=== PATIENT | male | born 1955 | race Caucasian/White ===

== ENCOUNTER 2019-09-19 05:38 | Observation (INO) | payer MEDICARE, MEDICAID ==
[~2019-09-19 05:38] MED LIST: Buffered Lidocaine 1% SYRIN* 1 ML/SYRINGE INTRADERM ONE
[2019-09-19] MEDS ORDERED: Lactated Ringers 1000 ML Bag* 1,000 ML IV SCH (06:00)
[2019-09-19] MEDS ORDERED: EPINEPHRINE 1 MG/ML 1 ML VIAL ONE (06:32)
[2019-09-19] MEDS ORDERED: Bupivacaine 0.5%* 50 ML MDV VIAL ONE (06:33)
[2019-09-19] MEDS ORDERED: Lidocaine 1% w EPI 1:100,000* MDV 20 ML VIAL ONE (06:33)
[2019-09-19] MEDS ORDERED: ceFAZolin 2 GM in NS PREMIX(*) 2 GM/100 ML BAG IVPB ONE (06:46)
[2019-09-19] MEDS ORDERED: Propofol* 10 MG/ML 20 ML BTL ONE (07:00)
[2019-09-19] MEDS ORDERED: Midazolam* 1 MG/ML 2 ML VIAL (2 MG) ONE (07:01)
[2019-09-19] MEDS ORDERED: fentaNYL* 50 MCG/ML 2 ML VIAL (100 MCG VIAL) ONE (07:01)
[2019-09-19] MEDS ORDERED: ROPIVACAINE 5 MG/ML 30 ML BTL (0.5%) ONE (07:01)
[2019-09-19] MEDS ORDERED: Lidocaine 2% PF * 5 ML VIAL ONE (07:01)
[2019-09-19] MEDS ORDERED: Rocuronium* 10 MG/ML VIAL ONE (07:03)
[2019-09-19] MEDS ORDERED: Propofol* 500 MG/50 ML BTL ONE (08:04)
[2019-09-19] MEDS ORDERED: KETAMINE HCL* 50 MG/ML 10 ML VIAL ONE (08:04)
[2019-09-19] MEDS ORDERED: Morphine INJ* 2 MG/ML 1 ML SYRINGE (TWO MG - NEW SYRINGE VERSION) IV PRN (09:51)
[2019-09-19] MEDS ORDERED: diPHENhydraMINE IV* 50 MG/ML 1 ml VIAL (BENADRYL) IV PRN (09:51)
[2019-09-19] MEDS ORDERED: diPHENhydraMINE PO* 25 MG PO PRN (09:51)
[2019-09-19] MEDS ORDERED: Magnesium Hydroxide LIQ* 30 ML UDC PO PRN (09:51)
[2019-09-19] MEDS ORDERED: Ondansetron INJ* 2 MG/ML VIAL IV PRN (09:51)
[2019-09-19] MEDS ORDERED: traZODone TAB* 50 MG TAB PO PRN (09:51)
[2019-09-19] MEDS ORDERED: oxyCODONE/Acetamin 5/325 MG* TAB PO PRN (09:51)
[2019-09-19] MEDS ORDERED: Ondansetron ODT TAB* 4 MG PO PRN (09:51)
[2019-09-19] MEDS ORDERED: Atropine 1MG/ML INJ* 1 ML VIAL ONE (09:59)
[2019-09-19] MEDS ORDERED: Mupirocin 2% OINT* TUBE TOPICAL PRN (10:00)
[2019-09-19] MEDS ORDERED: Docusate CAP* 100 MG PO PRN (10:00)
[2019-09-19] MEDS ORDERED: ceFAZolin 1 GM ADVAN(*) 1 GM in NS 0.9% 50 ML* 50 ML IVPB SCH (10:00)
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
[2019-09-19] MEDS: Lactated Ringers 1000 ML Bag* 1,000 ML IV SCH ×2 (12:48→22:33)
[2019-09-19] MEDS: Acetaminophen TAB* 325 MG PO SCH ×2 (14:47→22:17)
[2019-09-19] MEDS: ceFAZolin 1 GM ADVAN(*) 1 GM in NS 0.9% 50 ML* 50 ML IVPB SCH ×2 (16:11→23:35)
[2019-09-19] MEDS: traMADol TAB* 50 MG PO PRN (16:11)
[2019-09-19] MEDS ORDERED: Metoprolol/HCTZ 50/25 (NF) 1 TAB PO SCH (21:00)
[2019-09-19] MEDS: Atorvastatin* 20 MG TAB PO SCH (21:53)
[2019-09-19] MEDS: Terazosin CAP* 5 MG PO SCH (21:53)
[2019-09-19] MEDS: Docusate CAP* 100 MG PO SCH (21:53)
[2019-09-19] MEDS: oxyCODONE/Acetamin 5/325 MG* TAB PO PRN (21:53)
[2019-09-19] MEDS: Calcium/Vitamin D TAB 250/125* TAB PO SCH (21:53)
[2019-09-19] MEDS: Magnesium Hydroxide LIQ* 30 ML UDC PO SCH (21:53)
[2019-09-19] MEDS: Aspirin TAB* 325 MG PO SCH (21:53)
[2019-09-19] MEDS: Metoprolol Tartrate TAB* 25 MG PO SCH (21:53)
[2019-09-19] MEDS: Clobetasol 0.05% OINT* 30 GM TUBE TOPICAL SCH (21:55)
[2019-09-20] MEDS: Acetaminophen TAB* 325 MG PO SCH ×3 (05:12→20:59)
[2019-09-20] MEDS: Cyclobenzaprine TAB* 10 MG PO PRN ×3 (05:12→21:45)
[2019-09-20 05:20] LABS: Hematocrit 37 % (42-52); Hemoglobin 12.3 g/dL (14.0-18.0); Mean Platelet Volume 8.5 fL (7.4-10.4); Platelet Count 306 10^3/uL (150-450)
[2019-09-20 05:36] LABS: BUN/Creatinine Ratio 26.5 (8-20); Calcium 8.6 mg/dL (8.6-10.3); EGFR Non-African American 118.2 (>60); Potassium 3.5 mmol/L (3.5-5.0)
[2019-09-20] MEDS: oxyCODONE/Acetamin 5/325 MG* TAB PO PRN ×3 (05:48→17:06)
--- NOTE | 2019-09-20 08:16 | PN ---
Progress Note - Progress Note Date of Service: 09/20/19 SOAP: Subjective: []Pt seen at bedside. He feels well his knee pain is well controlled. Denies CP , SOB, dizziness, nausea. Objective: []Gen: NAD, appears well RLE: in a chair with immobilizer in place. DF/PF intact, DP2+, sensation intact to light touch distally. Calves supple and nontender without erythema, edema or palpable cords Assessment: []Right total knee arthrofibrosis. Status post 12/26/18 right total knee arthroplasty at outside hospital, followed by subsequent outside hospital incision and debridement and closure of dehisced wound. POD 1 sp Right knee arthroscopic lysis of adhesions, manipulation under anesthesia of a total knee arthroplasty. Plan: []WBAT Aggressive ROM and strengthening Keep in knee immobilizer when not in PT in addition to a bump under his ankle while in bed CM will seek rehab placement Vital Signs Temp 98.2 F 09/20/19 07:38 Pulse 72 09/20/19 07:38 Resp 16 09/20/19 09:45 BP 108/64 09/20/19 07:38 Pulse Ox 96 09/20/19 07:38 Intake & Output 09/19/19 09/20/19 09/20/19 18:59 06:59 18:59 Intake Total 700 1780 Output Total 870 750 Balance -170 1030 Intake: IV Fluids 700 980 LR 700 980 Oral 0 800 Output: Urine 870 750 Other: Estimated Void Medium Date of Last Bowel 09/19/2019 Movement # Bowel Movements 1 Estimated Stool Amount Medium # Voids 1 Laboratory Last Values Hgb 12.3 g/dL (14.0-18.0) L 09/20/19 04:09 Hct 37 % (42-52) L 09/20/19 04:09 Plt Count 306 10^3/uL (150-450) 09/20/19 04:09 MPV 8.5 fL (7.4-10.4) 09/20/19 04:09 Sodium 138 mmol/L (135-145) 09/20/19 04:09 Potassium 3.5 mmol/L (3.5-5.0) 09/20/19 04:09 Chloride 101 mmol/L (101-111) 09/20/19 04:09 Carbon Dioxide 31 mmol/L (22-32) 09/20/19 04:09 Anion Gap 6 mmol/L (2-11) 09/20/19 04:09 BUN 18 mg/dL (6-24) 09/20/19 04:09 Creatinine 0.68 mg/dL (0.67-1.17) 09/20/19 04:09 Est GFR ( Amer) 143.0 (>60) 09/20/19 04:09 Est GFR (Non-Af Amer) 118.2 (>60) 09/20/19 04:09 BUN/Creatinine Ratio 26.5 (8-20) H 09/20/19 04:09 Glucose 91 mg/dL (70-100) 09/20/19 04:09 Calcium 8.6 mg/dL (8.6-10.3) 09/20/19 04:09
[2019-09-20] MEDS: ceFAZolin 1 GM ADVAN(*) 1 GM in NS 0.9% 50 ML* 50 ML IVPB SCH (08:52)
[2019-09-20] MEDS ORDERED: Furosemide TAB* 40 MG PO SCH (09:00)
[2019-09-20] MEDS: traMADol TAB* 50 MG PO PRN ×2 (09:45→20:33)
[2019-09-20] MEDS: Ferrous Sulfate TAB* 325 MG PO SCH (09:46)
[2019-09-20] MEDS: Vitamin THERAPEUTIC TAB PO SCH (09:46)
[2019-09-20] MEDS: Aspirin TAB* 325 MG PO SCH ×2 (09:46→20:34)
[2019-09-20] MEDS: Potassium Chlor TAB* 20 MEQ TAB.ER PO SCH (09:46)
[2019-09-20] MEDS: Docusate CAP* 100 MG PO SCH ×2 (09:46→20:34)
[2019-09-20] MEDS: [UNRECOGNIZED DRUG - OTHER] PO SCH (09:47)
[2019-09-20] MEDS: FLAX PO SCH (09:47)
[2019-09-20] MEDS: BORAGE PO SCH (09:47)
[2019-09-20] MEDS: Pantoprazole TAB * 40 MG TAB PO SCH (09:47)
[2019-09-20] MEDS: FISH OIL PO SCH (09:47)
[2019-09-20] MEDS: Calcium/Vitamin D TAB 250/125* TAB PO SCH ×2 (09:47→20:34)
[2019-09-20] MEDS: Vitamin B Complex TAB PO SCH (09:47)
[2019-09-20] MEDS: Magnesium Hydroxide LIQ* 30 ML UDC PO SCH ×2 (09:48→20:33)
[2019-09-20] MEDS: Clobetasol 0.05% OINT* 30 GM TUBE TOPICAL SCH ×2 (09:49→20:58)
[2019-09-20] MEDS ORDERED: Phenol 1.4% Spray* 177 ML BTL MT PRN (09:53)
[2019-09-20] MEDS: Metoprolol Tartrate TAB* 25 MG PO SCH (09:57)
[2019-09-20] MEDS: Terazosin CAP* 5 MG PO SCH (20:34)
[2019-09-20] MEDS: Atorvastatin* 20 MG TAB PO SCH (20:34)
[2019-09-20] MEDS: Metoprolol Tartrate TAB* 50 mg PO SCH (20:34)
[2019-09-20] MEDS ORDERED: oxyCODONE TAB* 5 MG TAB PO PRN (21:58)
[2019-09-21] MEDS: Acetaminophen TAB* 325 MG PO SCH (04:15)
[2019-09-21] MEDS: oxyCODONE/Acetamin 5/325 MG* TAB PO PRN ×2 (04:49→09:47)
[2019-09-21 05:01] LABS: Hematocrit 38 % (42-52); Hemoglobin 12.5 g/dL (14.0-18.0); Mean Platelet Volume 8.6 fL (7.4-10.4); Platelet Count 274 10^3/uL (150-450)
--- NOTE | 2019-09-21 09:02 | PN ---
Progress Note - Progress Note Date of Service: 09/21/19 SOAP: Subjective: []Pt seen at bedside. He feels well his knee pain is well controlled. Denies CP , SOB, dizziness, nausea. Objective: []Gen: NAD, appears well RLE: in a chair with immobilizer in place. DF/PF intact, DP2+, sensation intact to light touch distally. Calves supple and nontender without erythema, edema or palpable cords. Dressing was changed today. Incisions are all c/d/i Vital Signs Temp 98.0 F 09/21/19 07:40 Pulse 59 09/21/19 07:40 Resp 16 09/21/19 07:40 BP 119/66 09/21/19 07:40 Pulse Ox 96 09/21/19 07:40 Intake & Output 09/20/19 09/21/19 09/21/19 18:59 06:59 18:59 Intake Total 600 550 Output Total 825 650 Balance -225 -100 Intake: Oral 600 550 Output: Urine 825 650 Assessment: []Right total knee arthrofibrosis. Status post 12/26/18 right total knee arthroplasty at outside hospital, followed by subsequent outside hospital incision and debridement and closure of dehisced wound. POD 2 sp Right knee arthroscopic lysis of adhesions, manipulation under anesthesia of a total knee arthroplasty. Plan: []WBAT Aggressive ROM and strengthening Keep in knee immobilizer when not in PT in addition to a bump under his ankle while in bed Awaiting placement to [facility].
[2019-09-21] MEDS: Aspirin TAB* 325 MG PO SCH (09:16)
[2019-09-21] MEDS: Calcium/Vitamin D TAB 250/125* TAB PO SCH (09:16)
[2019-09-21] MEDS: Clobetasol 0.05% OINT* 30 GM TUBE TOPICAL SCH (09:18)
[2019-09-21] MEDS: Docusate CAP* 100 MG PO SCH (09:18)
[2019-09-21] MEDS: Metoprolol Tartrate TAB* 50 mg PO SCH (09:18)
[2019-09-21] MEDS: Potassium Chlor TAB* 20 MEQ TAB.ER PO SCH (09:20)
[2019-09-21] MEDS: Ferrous Sulfate TAB* 325 MG PO SCH (09:20)
[2019-09-21] MEDS: Vitamin THERAPEUTIC TAB PO SCH (09:20)
[2019-09-21] MEDS: Pantoprazole TAB * 40 MG TAB PO SCH (09:20)
[2019-09-21] MEDS: Vitamin B Complex TAB PO SCH (09:20)
[2019-09-21] MEDS: Magnesium Hydroxide LIQ* 30 ML UDC PO SCH (09:21)
[2019-09-21] MEDS: BORAGE PO SCH (09:21)
[2019-09-21] MEDS: FLAX PO SCH (09:21)
[2019-09-21] MEDS: [UNRECOGNIZED DRUG - OTHER] PO SCH (09:21)
[2019-09-21] MEDS: FISH OIL PO SCH (09:21)
[2019-09-21] MEDS ORDERED: Bisacodyl SUPP* 10 MG SUPP PR PRN (09:51)
--- NOTE | 2019-09-21 10:45 | DS ---
<Wyatt Panda - Last Filed: 09/21/19 10:46> Orthopedic Discharge Summary - Discharge Summary Date of Admission:09/19/19 Date of Discharge: 09/21/2019 Date of Surgery: 09/19/2019 Attending Orthopedic Provider: Dr. Bill Pre-operative Diagnosis: Right knee adhesions s/p RTKA Operative Procedure: Right knee arthroscopic lysis of adhesions, manipulation under anesthesia of a total knee arthroplasty Disposition of Patient: long term facility Condition of Patient: Good History: MAXINE SOLO is a 64 year old M who presented to the clinic s/p RTKA with adhesions and significant decrease in ROM. Hospital Course: MAXINE was admitted to [facility] on 09/19/19. Patient underwent a Right knee arthroscopic lysis of adhesions, manipulation under anesthesia of a total knee arthroplasty without complication followed by a brief recovery in PACU and transfer to the Short Stay Surgical Unit in stable condition. Our hospitalist service, physical therapy and occupational therapy also participated in this patients care. Post-op day 1: patient was alert and in no acute distress. Dressing was clean, dry and intact. Operative extremity dorsiflexion and plantarflexion intact, sensation intact to light touch distally , DP2+. Post-op day two: dressing was changed, incision was clean, dry and intact. Patient was deemed to be medically and orthopedically stable for discharge. Physical therapy goals were met. Home Medications Medication Instructions Recorded Confirmed Type Simvastatin 40 mg PO BEDTIME 02/16/13 09/19/19 History Acetaminophen [APAP] 650 mg PO Q4H PRN 09/11/19 09/19/19 History Amoxicillin PO (*) [Amoxicillin 2,000 mg PO SEE INSTRUCTIONS PRN 09/11/19 History 500 MG CAP*] Aspirin 325 mg PO QAM 09/11/19 09/19/19 History Calcium Citrate/Vitamin D3 1 tab PO BID 09/11/19 09/19/19 History [Citracal/Vitamin D] Clobetasol 0.05% OINT* 1 applic TOPICAL BID 09/11/19 09/19/19 History Clotrimazole 1% TOPICAL (NF) 1 applic TOPICAL TID PRN 09/11/19 09/19/19 History [Lotrimin 1% TOPICAL (NF)] Docusate CAP* [Colace Cap*] 100 mg PO BID PRN 09/11/19 09/19/19 History Ferrous Sulfate TAB* 325 mg PO QAM 09/11/19 09/19/19 History Fish Oil/Borage/Flax/Om3,6,9 1 2,400 mg PO QAM 09/11/19 09/19/19 History [Bristol 3-6-9 1,200 mg Softgel] Furosemide TAB* [Lasix TAB*] 40 mg PO QAM 09/11/19 09/19/19 History Ibuprofen TAB* [Motrin TAB* 600 MG] 600 mg PO Q6H PRN 09/11/19 09/19/19 History Metoprolol/Hydrochlorothiazide 1 each PO BID 09/11/19 09/19/19 History [Metoprolol-Hctz 100-25 mg Tab] Multivitamin [One-Daily 1 each PO QAM 09/11/19 09/19/19 History Multi-Vitamin] Mupirocin 2% OINT* [Bactroban 2 % 1 applic TOPICAL BID PRN 09/11/19 09/19/19 History Oint*] Pantoprazole Sodium 20 mg PO QAM 09/11/19 09/19/19 History Potassium Chlor TAB* [Klor Con ER 20 meq PO QAM 09/11/19 09/19/19 History TAB*] Terazosin CAP* [Hytrin CAP*] 5 mg PO BEDTIME 09/11/19 09/19/19 History Vitamin B Complex TAB* [B 1 tab PO QAM 09/11/19 09/19/19 History Complex-50*] Discharge Instructions following Orthopedic Surgery: Activity: * Weight Bearing as tolerated * Continue physical therapy and occupational therapy exercises as shown * Knee immobilizer to be on at all times with exception of PT * Bump under right ankle when lying in bed or sitting in chair to keep extension. * PT to work on extension every day. Wound care: * OK to shower on post-op day 3, no bathing, swimming, or submerging wound. * Use gentle soap, pat dry. Cover with gauze, JULIAN wrap or tape. * Visiting home nurse to do wound checks. Call Orthopedic office for: * Increased drainage * Redness * Increased pain * Fever Go to ER with shortness of breath or chest pain. Diet: * Regular diet * Increase fluids and fiber to prevent constipation. * Continue to use stool softeners, call office if no bowel motion within 48 hours. Medications See Home Medication List in your packet for medications that you should take after discharge. DVT Prophylaxis: Aspirin Dosin mg twice a day x 10 days Pain Control: Percocet Dosin/325 mg 1-2 tabs by mouth every 4-6 hours as needed for pain. Maximum of 10 tabs per day. Please note that Percocet contains Tylenol (acetaminophen). Maximum daily dose of Tylenol is 4000 mg from all sources. Antibiotics are required prior to any dental work. FOLLOW UP: Follow up with [Fly] Within 10-14 days, call for appointment Please call our office with any questions or concerns ([phone]) <Dony Bill - Last Filed: 09/23/19 23:26> Orthopedic Discharge Summary - Discharge Summary Date of Admission:09/19/19 Date of Discharge: [] Date of Surgery: [] Attending Orthopedic Provider: [] Pre-operative Diagnosis: [] Operative Procedure: [] Disposition of Patient: [] Condition of Patient: [] History: MAXINE SOLO is a 64 year old M with years of increasingly severe [] pain. Patient has failed conservative management and has elected to undergo a [ ] total [] replacement Hospital Course: MAXINE was admitted to [facility] on 09/19/19. Patient underwent a [] without complication followed by a brief recovery in PACU and transfer to the Short Stay Surgical Unit in stable condition. Our hospitalist service, physical therapy and occupational therapy also participated in this patients care. Post-op day 1: patient was alert and in no acute distress. Dressing was clean, dry and intact. Operative extremity dorsiflexion and plantarflexion intact, sensation intact to light touch distally , DP2+. Post-op day two: dressing was changed, incision was clean, dry and intact. Patient was deemed to be medically and orthopedically stable for discharge. Physical therapy goals were met. Patient obtained 8 degrees of extension in his PT session on the day of discharge and reported to his therapist that he was walking much improved compared with preoperatively. Home Medications Medication Instructions Recorded Confirmed Type Simvastatin 40 mg PO BEDTIME 02/16/13 09/19/19 History Acetaminophen [APAP] 650 mg PO Q4H PRN 09/11/19 09/19/19 History Amoxicillin PO (*) [Amoxicillin 2,000 mg PO SEE INSTRUCTIONS PRN 09/11/19 History 500 MG CAP*] Aspirin 325 mg PO QAM 09/11/19 09/19/19 History Calcium Citrate/Vitamin D3 1 tab PO BID 09/11/19 09/19/19 History [Citracal/Vitamin D] Clobetasol 0.05% OINT* 1 applic TOPICAL BID 09/11/19 09/19/19 History Clotrimazole 1% TOPICAL (NF) 1 applic TOPICAL TID PRN 09/11/19 09/19/19 History [Lotrimin 1% TOPICAL (NF)] Docusate CAP* [Colace Cap*] 100 mg PO BID PRN 09/11/19 09/19/19 History Ferrous Sulfate TAB* 325 mg PO QAM 09/11/19 09/19/19 History Fish Oil/Borage/Flax/Om3,6,9 1 2,400 mg PO QAM 09/11/19 09/19/19 History [Bristol 3-6-9 1,200 mg Softgel] Furosemide TAB* [Lasix TAB*] 40 mg PO QAM 09/11/19 09/19/19 History Ibuprofen TAB* [Motrin TAB* 600 MG] 600 mg PO Q6H PRN 09/11/19 09/19/19 History Metoprolol/Hydrochlorothiazide 1 each PO BID 09/11/19 09/19/19 History [Metoprolol-Hctz 100-25 mg Tab] Multivitamin [One-Daily 1 each PO QAM 09/11/19 09/19/19 History Multi-Vitamin] Mupirocin 2% OINT* [Bactroban 2 % 1 applic TOPICAL BID PRN 09/11/19 09/19/19 History Oint*] Pantoprazole Sodium 20 mg PO QAM 09/11/19 09/19/19 History Potassium Chlor TAB* [Klor Con ER 20 meq PO QAM 09/11/19 09/19/19 History TAB*] Terazosin CAP* [Hytrin CAP*] 5 mg PO BEDTIME 09/11/19 09/19/19 History Vitamin B Complex TAB* [B 1 tab PO QAM 09/11/19 09/19/19 History Complex-50*]
[2019-09-21 11:32] VITALS: BP 120/67
[2019-09-21] MEDS: traMADol TAB* 50 MG PO PRN (12:29)
== END 2019-09-21 13:34 ==
LOC: OR 05:38 → UNDOADMOB 10:00 → SSU 10:00 → INTOOBSV 12:40 → UNDOADMOB 12:40
PROVIDERS: ADMIT Orthopaedic Surgery; ATTEND Orthopaedic Surgery
DX: M24.661 Ankylosis, right knee (principal); M25.561 Pain in right knee; Z87.820 Personal history of traumatic brain injury; K21.9 Gastro-esophageal reflux disease without esophagitis; R60.0 Localized edema; E78.5 Hyperlipidemia, unspecified; I10 Essential (primary) hypertension; R06.02 Shortness of breath; Z88.0 Allergy status to penicillin; Z79.82 Long term (current) use of aspirin; Z79.899 Other long term (current) drug therapy; Z85.46 Personal history of malignant neoplasm of prostate; D64.9 Anemia, unspecified; Z96.651 Presence of right artificial knee joint
CPT/HCPCS: 36415; 76000; 80048; 85014; 85018; 85049; 87070; 87073; 87205; A9270-GY; G0378; G8987-GO-CK; G8988-GO-CI; J0461; J0690; J2250; J2704; J2795; J3010; J3490